=== PATIENT | female | born 1980 | race African-American/Black ===

== ENCOUNTER 2017-08-08 20:48 | Emergency (ER) | payer BC, OTHER ==
[~2017-08-08] VITALS: Ht 180.3 cm; Wt 84.4 kg
[2017-08-08 20:50] VITALS: BP 124/70; PULSE 93; RESP 16; TEMP 97.6; O2SAT 100
[2017-08-08] MEDS ORDERED: PHEN-556 PO (21:04)
--- NOTE | 2017-08-08 21:10 | PD ---
HPI Chief Complaint: Laceration/Skin Injury Time Seen by Provider: 20:55 Travel History International Travel<30 days: Yes Contact w/Intl Traveler<30days: [place] Traveled to: [facility] Traveled to known affect area: No History of Present Illness HPI This is a 37-year-old female who presents to the emergency department having cut her left hand when she was shopping sweet potatoes. She sustained a small laceration on her left palm, constant, moderate severity with no associated numbness or weakness. [facility] Past Medical History Medical History: Denies Significant Hx Diminished Hearing: No Tetanus Vaccination: Never Vaccinated Influenza Vaccination: No ?: Not LMP: 07/31/17 Past Surgical History Surgical History: No Previous Surgery Section: Yes (2) Social History Alcohol Use: Yes (glass of wine every two days) Tobacco Use: No Substance Use: No Allergies-Medications (Allergen,Severity, Reaction): Coded Allergies: No Known Allergies (Verified Adverse Reaction, Unknown, 08/08/17) Reported Meds & Prescriptions Reported Meds & Active Scripts Active Reported Lomaira (Phentermine HCl) 8 Mg Tab 8 Mg PO TID Review of Systems General / Constitutional: No: Fever, Chills Cardiovascular: No: Chest Pain or Discomfort Gastrointestinal: No: Nausea, Vomiting Physical Exam Narrative GENERAL: Well-appearing, no acute distress, nontoxic SKIN: 2 cm laceration along the mid palm of the left hand with no neurovascular or tendon structures exposed HEAD: Atraumatic. Normocephalic. ENT: No nasal bleeding or discharge. Moist mucous membranes MUSCULOSKELETAL: No obvious deformities. No clubbing. No cyanosis. No edema. NEUROLOGICAL: Awake and alert. No obvious cranial nerve deficits. Motor grossly within normal limits. Normal speech. PSYCHIATRIC: Appropriate mood and affect; insight and judgment normal. Data Data Last Documented VS Vital Signs Date Time Temp Pulse Resp B/P (MAP) Pulse Ox O2 Delivery O2 Flow Rate FiO2 08/08/17 20:50 97.6 93 16 124/70 (88) 100 Orders Orders Tetanus/Diphtheria Tox Adult (Tetanus/Di (08/08/17 21:15) Lidocaine Pf 1% Inj (Xylocaine-Mpf 1% In (08/08/17 21:30) Lidocaine Pf 1% Inj (Xylocaine-Mpf 1% In (08/08/17 21:29) MDM Medical Decision Making Medical Screen Exam Complete: Yes Emergency Medical Condition: Yes Interpretation(s) afebrile, mild tachycardia Differential Diagnosis Laceration, wound infection Narrative Course This is a 37-year-old female who presents to the emergency department having sustained a laceration when she was cutting vegetables. Laceration was repaired. There was no neurovascular injury. Tetanus was updated. She was given wound care instructions. Procedures Procedure Narrative LACERATION LOCATION: Palm of left hand LENGTH: 2 cm NUMBER OF STITCHES/AKANKSHA: 2 REPAIR: The area of the laceration was cleansed with normal saline and sterilely draped. The laceration was infiltrated with 2 cc 1% lidocaine. The wound was copiously irrigated and explored without evidence of foreign body, tendon injury or neurovascular injury. The wound was closed using 2 5-0 Prolene sutures. This was a single layer repair. A sterile dressing was applied. The patient was advised to keep the dressing clean and dry. Patient tolerated the procedure well. Diagnosis Primary Impression: Laceration Patient Instructions: General Instructions Additional Instructions: If you develop fevers, redness, swelling, or discharge from your wound return to the emergency room. Keep your wound dry for 24 hours. After that time, wash gently with warm soap and water. Do not use peroxide. Do not soak in baths or go swimming. Have your sutures removed in 10 days. Med/Other Pt SpecificInfo: No Change to Meds Disposition: 01 DISCHARGE HOME Condition: Stable Majo Beard MD Aug 08, 2017 21:10
[2017-08-08] MEDS ORDERED: TETANUS/DIPHTHERIA TOXOID ADULT 0.5 ML VIAL IM ONE (21:15)
[2017-08-08] MEDS ORDERED: LIDOCAINE HCL 1% PF 30 ML VIAL ONE (21:29)
[2017-08-08] MEDS ORDERED: LIDOCAINE HCL 1% PF 30 ML VIAL INFIL ONE (21:30)
== END 2017-08-08 21:54 | disposition home or self-care (01) ==
LOC: PHEFT 20:48
DX: S61.412A Laceration without foreign body of left hand, initial encounter (principal); W26.0XXA Contact with knife, initial encounter; Y93.G1 Activity, food preparation and clean up; Z23 Encounter for immunization
CPT/HCPCS: 12001; 90471; 90714